=== PATIENT | male | born 1950 | race Caucasian/White ===

== ENCOUNTER 2017-11-16 11:48 | Observation (INO) | payer OTHER ==
[2017-11-16 12:39] LABS: PLATELET COUNT 102 10^3/uL (150-400)
[2017-11-16 13:35] LABS: INR 1.19 (0.83-1.16); PROTIME(PATIENT) 15.3 SEC (12.0-15.0)
[2017-11-16] MEDS ORDERED: OCTREOTIDE ACETATE 50 MCG/ML INJ IVP ONE (14:04)
[2017-11-16] MEDS ORDERED: PANTOPRAZOLE SODIUM 80 MG in NS 100 ML IV ONE (14:08)
--- NOTE | 2017-11-16 14:10 | EDPHY ---
H & P Stated Complaint: dark stools, malaise - Personal History Current Tetanus/Diphtheria Vaccine: Unsure Current Tetanus Diphtheria and Acellular Pertussis (TDAP): Unsure - Medical/Surgical History Hx Asthma: No Hx Chronic Respiratory Disease: Yes Hx Diabetes: No Hx Cardiac Disease: No Hx Renal Disease: No Hx Cirrhosis: Yes Hx Alcoholism: No Hx HIV/AIDS: No Hx Splenectomy or Spleen Trauma: No Other PMH: hepatitis C resolved, portal htn,. mild copd. appy. tonsillectomy - Social History Smoking Status: Former smoker Constitutional: Initial Vital Signs Temperature (C) 36.7 C 11/16/17 12:04 Heart Rate 87 11/16/17 12:04 Respiratory Rate 20 11/16/17 12:04 Blood Pressure 130/79 H 11/16/17 12:04 O2 Sat (%) 90 L 11/16/17 12:04 O2 Delivery Mode Room Air Allergies/Adverse Reactions: Interferons Allergy (Mild, Verified 06/02/15 08:41) Rash Home Medications: Medication Instructions Recorded Cholecalciferol Vit D3 [Vitamin D3 500 units PO DAILY 11/16/17 (*)] Multivitamins [Multivitamin (*)] 1 each PO DAILY 11/16/17 Esomeprazole Magnesium [Nexium] 20 mg PO BID #60 capsule. 11/18/17 Medical Decision Making ED Course/Re-evaluation: Patient's chart indicates that he is allergic to pantoprazole. He tells me that he has no recollection of being allergic to this medication. He takes Nexium without difficulty. I am ordering pantoprazole IV along with octreotide. - Data Points Laboratory Results: Laboratory Results 11/16/17 12:30 11/16/17 12:30 Medications Given: Discontinued Medications Acetaminophen (Tylenol) 650 mg PO Q4HRS PRN PRN Reason: Pain, Mild/Fever, Can Take PO Stop: 05/15/18 14:51 Last Admin: 11/17/17 21:34 Dose: 650 mg Hydrocodone Bitart/Acetaminophen (Gaylord 5/325) 1 - 2 tab PO Q4HRS PRN PRN Reason: Pain, Moderate Able to Take PO Stop: 11/26/17 14:51 Last Admin: 11/17/17 14:42 Dose: 2 tab Fentanyl (Sublimaze) 25 mcg IVP ONCE ONE Stop: 11/17/17 12:32 Last Admin: 11/17/17 14:14 Dose: Not Given Fentanyl (Sublimaze) 25 - 100 mcg IVP Q5M PRN PRN Reason: PACU, IMMEDIATE Pain control Stop: 11/17/17 13:32 Last Admin: 11/17/17 12:51 Dose: 50 mcg Pantoprazole Sodium 80 mg/ (Sodium Chloride) 100 mls @ 200 mls/hr IV ONCE ONE Stop: 11/16/17 14:37 Last Admin: 11/16/17 14:16 Dose: 100 mls Sodium Chloride (Ns) 1,000 mls @ 150 mls/hr IV CONT KELSIE Stop: 05/15/18 14:59 Last Admin: 11/17/17 00:12 Dose: 1,000 mls Octreotide Acetate 500 mcg/ (Sodium Chloride) 51 mls @ 5 mls/hr IV CONT KELSIE Stop: 05/15/18 14:59 Last Admin: 11/18/17 09:26 Dose: 51 mls Pantoprazole Sodium 80 mg/ (Sodium Chloride) 100 mls @ 200 mls/hr IV BID KELSIE Stop: 05/15/18 20:59 Last Admin: 11/18/17 08:03 Dose: 100 mls Multivitamins (Tab-A-Radha) 1 each PO DAILY KELSIE Stop: 05/16/18 08:59 Last Admin: 11/18/17 08:03 Dose: 1 each Octreotide Acetate (Octreotide Acetate) 50 mcg IVP ONCE ONE Stop: 11/16/17 14:05 Last Admin: 11/16/17 15:21 Dose: 50 mcg Pantoprazole Sodium (Protonix) 40 mg PO DAILY KELSIE Stop: 05/17/18 08:59 Last Admin: 11/18/17 09:03 Dose: Not Given Zolpidem Tartrate (Ambien) 5 - 10 mg PO HS PRN PRN Reason: Sleep/Insomnia, use 1st Stop: 05/15/18 14:51 Last Admin: 11/17/17 21:35 Dose: 5 mg Departure - Departure Disposition: [facility] Acute Condition: Good
[2017-11-16] MEDS ORDERED: LORazepam 0.5 MG TAB PO PRN (14:52)
[2017-11-16] MEDS ORDERED: ALBUTEROL 3 ML DEYVIAL IH PRN (14:52)
[2017-11-16] MEDS ORDERED: ONDANSETRON DISINTEGRATING 4 MG TAB PO PRN (14:52)
[2017-11-16] MEDS ORDERED: ONDANSETRON 4 MG/2 ML VIAL IVP PRN (14:52)
[2017-11-16] MEDS ORDERED: ACETAMINOPHEN 325 MG TAB PO PRN (14:52)
[2017-11-16] MEDS ORDERED: LORazepam 2 MG/ML INJ IVP PRN (14:52)
[2017-11-16] MEDS ORDERED: HYDROCODONE/APAP 5/325 TAB PO PRN (14:52)
--- NOTE | 2017-11-16 15:24 | GHP ---
[f rep st] HISTORY AND PHYSICAL DATE OF ADMISSION: 11/16/2017 HISTORY OF PRESENT ILLNESS: This is a 66-year-old male who presents with a 1-2 day history of black and tarry stools. Today, he has had 2 black stools, somewhat tarry in nature along with a feeling of nausea without vomiting or hematemesis. He has known grade 3 varices dating to 2012 secondary to he patitis C which was an initial treatment failure with PEG interferon but has since been treated and i s now resolved. His most recent viral loads have been undetected. Notes are that he has had an unde tected viral load since 2013. In the past 7 days, he has had 1-2 drinks of wine. He denies the use of NSAIDs, Aleve, ibuprofen, or aspirin. The tarry stools have occurred without abdominal pain but h ave occurred with nausea but without vomiting. He denies having fever, chills, sweats, or chest pain . He also denies dizziness or weakness when standing and has not noted a change in the color of his urine. PAST MEDICAL HISTORY: 1. Known hepatitis C. As noted in the HPI, was initially treated with PEG interferon but failed, singh s since been treated a second time, and has improved with a negative viral load since 2013. 2. Cirrhosis with known portal hypertension and grade 3 varices dating to an endoscopy of 2012 when he had the varices banded. Last liver biopsy was in 2012 showing evidence of chronic hepatitis, cirr hosis. It was a grade 3 stage IV biopsy with minimal iron stores noted. 3. COPD with a 30-40 pack-year history of tobacco, though he stopped tobacco in 2009. He does not h ave a regular cough and does not note shortness of breath with walking activities. He uses oxygen at night per a sleep study conducted by Dr. Hugo Stahl. MEDICATIONS: His home medications include vitamin D, Nexium, and a multivitamin. ALLERGIES: Are noted to interferon and it is also noted in the chart that he has pantoprazole listed as an allergy although the patient denies any knowledge of this allergy and denies any known reactio n. He is currently receiving pantoprazole IV slowly in the emergency department without reactions. FAMILY HISTORY: Positive for diabetes in his father, and his father ultimately of coronary donovan ry disease although this may not be of early coronary artery disease history. There is no history of early cancer nor is there any history of bleeding diathesis or clotting disorder. SOCIAL HISTORY: Tobacco: He has a 30-40 pack-year history which he stopped in 2009. Alcohol: He c ontinues to consume alcohol on a near daily basis with drinking wine and never in excess of 2 drinks of wine a day. Drugs are none. His power of patent prosecution attorney has not been established, but his is pres ent and will be making decisions in emergencies. REVIEW OF SYSTEMS: A 10-point review of systems is negative except as noted above. Specifically, he has noted no recent headache or any vision changes. He denies any cough, shortness of breath. Quintin es chest pain, any prior cardiac rhythm disturbance, or any recent discomfort of the chest. He has h ad no abdominal pain yet he has had some nausea. His bowels otherwise function normally. He has kno wn enlarged prostate mildly, but it is not under treatment and denies having hesitancy or frequency. Denies joint, skin problems. There is no psychiatric history. PHYSICAL EXAMINATION: GENERAL: Well-developed, alert, calm gentleman. VITAL SIGNS: Currently norm al. O2 saturation is normal, and he is afebrile. HEENT: TMs are lee bilaterally. The throat is n ot injected. Tongue and buccal mucosa appear normal. There is no jaundice. NECK: Supple without m eningismus. There is no adenopathy in the cervical or axillary region. PULMONARY: Lungs are clear to P and A without wheezing or rales. Breath sounds may be slightly reduced. HEART: Regular rate a nd rhythm. Normal S1, physiologically split S2. No murmur or gallop. ABDOMEN: Normoactive bowel s ounds. There is a sense of fullness in the epigastrium and the right upper quadrant but no sense of tenderness or pain. Has no palpable mass. Spleen is not palpable. There is no rebound. : Genit jatin show a normal male. SKIN: Warm and dry. EXTREMITIES: Warm and dry. VASCULAR: Pulses 2+ at the dorsalis pedis, posterior tibial, femorals, and carotids. No bruits appreciated. NEUROLOGIC: A ppears symmetric and normal grossly. LABORATORY: WBC 8000, hemoglobin is 11.66, down from 13.8 previously. INR is slightly high at 1.19. His chemistry panel is normal except for a slightly elevated BUN at 39. Renal function appears nor mal. ASSESSMENT: 1. Acute gastrointestinal bleed, probably upper gastrointestinal bleed secondary to bleeding varices . His last endoscopy of record here in 2012 did not show any evidence of peptic ulcer disease in the duodenum or the stomach although significant gastropathy was noted secondary to portal hypertension; thus, it is certainly possible with his increased consumption of alcohol that he may be bleeding fro m varices. He is currently not orthostatic although his BUN is slightly elevated. This is likely se condary to the GI bleeding and not the volume contraction. He is currently n.p.o. and hungry, and an endoscopy is planned in the near future. In the emergency department, he has received octreotide an d pantoprazole. GI consultation has been obtained, and he will be seen by Dr. Angleo Barr later tung herman. 2. Chronic obstructive pulmonary disease with the use of oxygen at night secondary to the findings o f a sleep study conducted by Dr. Hugo Stahl. He currently has normal oxygenation, no respiratory d istress, and disclaims any recent history of respiratory problems. The chest x-ray has not been perf ormed. Given the normal exam and the negative history and findings, it does not seem to be necessary . 3. Prior history of chest pain post an endoscopy in 2013. He disclaims any evidence of chest pain, orthopnea, or PND, and currently, his rhythm is stable. No further evaluation appears necessary. 4. Deep venous thrombosis prophylaxis will be with sequential compression devices and ambulation due to the gastrointestinal bleeding. 5. Code status is full. With his POA, we will presume to be his . TIME: This admission required 50 minutes. /[id number]/MODL
[2017-11-16] MEDS: NS 1,000 ML IV SCH (18:34)
[2017-11-16] MEDS: PANTOPRAZOLE SODIUM 80 MG in NS 100 ML IV SCH (20:39)
[2017-11-16] MEDS: ZOLPIDEM TARTRATE 5 MG TAB PO PRN (22:43)
[2017-11-17] MEDS: NS 1,000 ML IV SCH (00:12)
[2017-11-17] MEDS: OCTREOTIDE ACETATE 500 MCG in NS 50 ML IV SCH ×2 (02:56→21:35)
--- NOTE | 2017-11-17 03:41 | GCON ---
[f rep st] CONSULTATION DATE OF CONSULTATION: 11/16/2017 REFERRING PHYSICIAN: Rosalino Jones Jr., MD REASON FOR CONSULTATION: Dr. Jones thank you very kindly for asking me to evaluate the patient in consultation today for a chief complaint of melena. HISTORY OF PRESENT ILLNESS: He is a 66-year-old gentleman with known cirrhosis, who has had problems with previous variceal bleeding back in 2012 secondary to both hepatitis C and possibly a component of fatty liver, who was admitted with 3 days of melena. His hematocrit was noted to be even lower th an baseline at 36.8. His INR is 1.19. His BUN is elevated at 39. He has had no hematemesis. He de nies any chest pain or difficulty with dysphagia. Does not report any hematochezia, maroon stool or hematemesis. He has been taking Nexium intermittently for reflux. He has not had an upper endoscopy in about 2 years after surveillance endoscopy ablated his varices completely. He is admitted for fu rther evaluation and management. PAST MEDICAL HISTORY: Hepatitis C, cirrhosis, esophageal varices with history of bleeding, COPD from tobacco use. MEDICATIONS: Include Nexium, multivitamin, vitamin D. ALLERGIES: Interferon. FAMILY HISTORY: Significant for diabetes in his father. No history of hepatitis or liver cancer. SOCIAL HISTORY: For tobacco 40 pack year. Alcohol on a daily basis. No other substance abuse. REVIEW OF SYSTEMS: CONSTITUTIONAL: Some mild malaise. No fever, chills, night sweats, anorexia, or weight loss. HEENT: Denies headache, epistaxis, visual disturbances, dizziness, rhinorrhea, sore t hroat, or difficulty swallowing. PULMONARY: No shortness of breath or cough. CARDIOVASCULAR: No c hest pains, palpitations, or syncope. GI: Per the HPI. No lower extremity edema. Otherwise negati ve. RHEUMATOLOGIC: No joint pain or swelling. GENITOURINARY: No flank pain, hematuria, or dysuria. HEMATOLOGIC: No epistaxis or bruising. LYMPH : Denies any adenopathy or glandular swelling. PSYCHIATRIC: No depression, anxiety, or insomnia. PHYSICAL EXAMINATION: VITAL SIGNS: Blood pressure 112/64, heart rate is 85, respirations are 15, ox ygenation is 90% on room air, temperature is 36.9. GENERAL: Comfortable male in no acute distress. HEENT: Normocephalic, atraumatic. Sclerae anicteric. Neck supple. Nares are without blood. PULM ONARY: Clear to auscultation bilaterally. CARDIOVASCULAR: Regular rate and rhythm without murmur, rub, or gallop. GI: Abdomen is soft and without organomegaly. No ascites. No tenderness, rebound, or guarding. EXTREMITIES: There is palmar erythema. DERMATOLOGIC: No jaundice, but there are spi pola angiomata over the chest. NEUROLOGIC: Alert to person, place, and time. No asterixis. Nonfoca l motor exam. LYMPH: No adenopathy to the anterior cervical, supraclavicular, axillary, or groin ar ea. LABORATORY DATA: Database includes the following; white blood count is 8.9; hematocrit 36.8; platele ts are 102; MCV is 79.5. INR is 1.1 with a PT of 15.3. Sodium 144, potassium 4.6, chloride 112, bic arbonate 18, BUN 39, creatinine 0.8, glucose 90. Total bilirubin 0.98, AST 22, ALT 25, alkaline phosphatase 83, total protein 6.5, albumin 4.0. IMPRESSION: 1. Anemia secondary to acute blood loss. 2. Melena. 3. Cirrhosis due to hepatitis C and alcohol. 4. History of esophageal varices with previous bleeding. 5. Thrombocytopenia. PLAN: 1. Octreotide bolus and drip. 2. Protonix 40 mg b.i.d. IV should be fine. 3. Type and hold 2 units of blood. 4. Monitor hematocrit q.4 hours. 5. I believe he can have a full liquid diet tonight with n.p.o. after midnight for planned endoscopy with likely varicocele band ligation. 6. If there is more urgent bleeding, we will perform endoscopy on a more urgent basis. 7. Further recommendations to follow his endoscopic evaluation tomorrow. /[id number]/MODL
[2017-11-17 04:50] LABS: INR 1.23 (0.83-1.16); PROTIME(PATIENT) 15.7 SEC (12.0-15.0)
[2017-11-17] MEDS: PANTOPRAZOLE SODIUM 80 MG in NS 100 ML IV SCH ×2 (08:30→20:43)
[2017-11-17] MEDS: MULTIVITAMINS 1 EACH TAB PO SCH (08:30)
[2017-11-17 10:07] LABS: PLATELET COUNT 69 10^3/uL (150-400)
--- NOTE | 2017-11-17 11:01 | HOSPPROG ---
Hospitalist Progress Note Assessment/Plan: New patient encounter 66 yo male admitted with melena, likely UGIB, and acute blood loss anemia #Acute blood loss anemia -has not received transfusion -repeat H/H in the 9's, no tachycardia #melena and likely UGIB in a pt with hx of esophogeal varices with bleed -Will have endoscopy per Dr. Laughlin today -Cont PPI IV and Octreotide #Thrombocytopenia, monitor #Cirrhosis due to hx of Hep C and ETOH #COPD and nocturnal hypoxemia, currently at baseline Plan: -Await endoscopy results -cont current mgmt -Transfuse PRN -SCD's -Full Code Subjective: NPO. Awaiting endoscopy today. Still with melena. Objective: Vital Signs Temp Pulse Resp BP Pulse Ox 36.8 C 81 18 106/62 89 L 11/17/17 08:58 11/17/17 08:58 11/17/17 08:58 11/17/17 08:58 11/17/17 08:58 Laboratory Results 11/17/17 09:55 11/17/17 04:23 11/16/17 11/17/17 11/18/17 05:59 05:59 05:59 Intake Total 100 Balance 100 PT 15.7 SEC (12.0-15.0) H 11/17/17 04:23 INR 1.23 (0.83-1.16) H 11/17/17 04:23 - Physical Exam Constitutional: no apparent distress Eyes: PERRL, EOMI Ears, Nose, Mouth, Throat: moist mucous membranes, hearing normal Cardiovascular: regular rate and rhythym, No edema Respiratory: no respiratory distress, no rales or rhonchi, reduced air movement Gastrointestinal: normoactive bowel sounds, soft, non-tender abdomen Genitourinary: no bladder fullness Skin: warm Musculoskeletal: full muscle strength Neurologic: AAOx3 Psychiatric: interacting appropriately, not anxious, not encephalopathic, thought process linear Lymph, Heme, Immunologic: No petechiae ICD10 Worksheet Patient Problems: Problems Problem Status Onset Gastrointestinal bleeding Acute
[2017-11-17] MEDS ORDERED: PROPOFOL 200 MG/20 ML VIAL ONE ×2 (11:54→12:22)
--- NOTE | 2017-11-17 11:54 | PDANEPAE ---
ANE History of Present Illness 66 year old male for EGD ANE Past Medical History - Pulmonary History Hx Oxygen in Use at Home: Yes O2 in Use at Home (L/minute): 2L Hx Sleep Apnea: Yes - Endocrine History Hx Diabetes: No ANE Review of Systems Review of Systems: ANE Patient History - Allergies Allergies/Adverse Reactions: Interferons Allergy (Mild, Verified 06/02/15 08:41) Rash - Home Medications Home Medications: Cholecalciferol Vit D3 [Vitamin D3 (*)] 500 units PO DAILY 11/16/17 [Last Taken Unknown] Esomeprazole Magnesium [Nexium] 20 mg PO DAILY PRN 11/16/17 [Last Taken Unknown] Multivitamins [Multivitamin (*)] 1 each PO DAILY 11/16/17 [Last Taken Unknown] - Smoking Hx Smoking Status: Former smoker ANE Labs/Vital Signs - Labs Result Diagrams: 11/17/17 09:55 11/17/17 04:23 - Vital Signs Blood Pressure: 106/62 Heart Rate: 81 Respiratory Rate: 18 O2 Sat (%): 89 Height: 170.18 cm Weight: 79.469 kg ANE Physical Exam - Airway Mallampati Score: Class 1 ANE Anesthesia Plan Anesthesia Plan: MAC
--- NOTE | 2017-11-17 11:55 | POSTANESTH ---
Post Anesthetic Evaluation Respiratory Status: Normal, Stable Level of Consciousness/Mental Status: Can Participate in Eval Pain Control: Adequate, Prn Tx Ordered Nausea/Vomiting Control: Adequate, Prn Tx Ordered Complications Possibly Related to Anesthesia: None Noted
[2017-11-17] MEDS ORDERED: NALOXONE HCL 0.4 MG/ML INJ IVP PRN ×2 (11:56→12:32)
[2017-11-17] MEDS ORDERED: fentaNYL 100 MCG/2 ML INJ IVP ONE (12:31)
[2017-11-17] MEDS ORDERED: fentaNYL 100 MCG/2 ML INJ IVP PRN (12:32)
--- NOTE | 2017-11-17 12:34 | GIREPORT ---
Formerly [facility], [facility] Surgical Services - Endoscopy Department Patient Name: Scott Miramontes Procedure Date: 11/17/2017 11:50 AM Patient Type: Inpatient Attending MD/ ER Physician: Angelo Barr MD Procedure: Upper GI endoscopy Indications: Melena Providers: Angelo Barr MD Medicines: Propofol per Anesthesia Complications: No immediate complications. Description of Procedure: After obtaining informed consent, the endoscope was passed under direct vision. Throughout the procedure, the patient's blood pressure, pulse, and oxygen saturations were monitored continuously. The Endoscope was intro duced through the mouth, and advanced to the second part of duodenum. The [facility] er GI endoscopy was accomplished without difficulty. The patient tolerated th e procedure well. Findings: Grade II varices were found in the middle third of the esophagus and in the lower third of the esophagus. They were 8 mm in largest diameter. Four bands were successfully placed with complete eradication, resulting in deflat ion of varices. There was no bleeding at the end of the maneuver. Moderate portal hypertensive gastropathy was found in the entire examin ed stomach. The examined duodenum was normal. Estimated Blood Loss: Estimated blood loss: none. Post Op Diagnosis: - Grade II esophageal varices. Completely eradicated. Banded. - Portal hypertensive gastropathy. - No gastric varices. - Normal examined duodenum. - No specimens collected. Recommendation: - Soft diet. - Continue octreotide infusion of 50 micrograms per hour for 2 addition al days. - Use Protonix (pantoprazole) 40 mg PO daily. - Repeat upper endoscopy in 4 weeks for retreatment. - No aspirin, ibuprofen, naproxen, or other non-steroidal anti-inflamma tory drugs. - Check hematocrit q 8 hours until stable. - [facility]. - Thank you for allowing me to be involved in the care of your patient. Attending Participation: I personally performed the entire procedure without the assistance of a fellow, resident or surg ical stores assistant. Angelo Barr MD Angelo Barr MD 11/17/2017 12:33:55 PM This report has been signed electronicallyDavid MD Momo Number of Addenda: 0 Note Initiated On: 11/17/2017 11:50 AM [email or web address]
[2017-11-17] MEDS ORDERED: fentaNYL 100 MCG/2 ML INJ ONE (12:48)
[2017-11-17] MEDS: ZOLPIDEM TARTRATE 5 MG TAB PO PRN (21:35)
[2017-11-18 03:52] VITALS: O2SAT 90
[2017-11-18 04:59] LABS: PLATELET COUNT 52 10^3/uL (150-400)
[2017-11-18] MEDS: MULTIVITAMINS 1 EACH TAB PO SCH (08:03)
[2017-11-18] MEDS: PANTOPRAZOLE SODIUM 80 MG in NS 100 ML IV SCH (08:03)
[2017-11-18] MEDS ORDERED: PANTOPRAZOLE SODIUM 40 MG TAB PO SCH (09:00)
[2017-11-18] MEDS: OCTREOTIDE ACETATE 500 MCG in NS 50 ML IV SCH (09:26)
[2017-11-18 12:07] VITALS: BP 125/78; PULSE 70; RESP 18; TEMP 97.7
--- NOTE | 2017-11-18 12:11 | PDDCSUM ---
Discharge Summary Discharge Summary: 66 yo male admitted with melena and acute blood loss anemia. He has a hx of variceal bleed. He had endoscopy performed by Dr. Laughlin who found Grade II esophogeal varices and four bands were placed. There was also e/o of portal HTN Gastropathy. No e/o of gastric varices. Normal duodenum. No specimens were collected. He was kept overnight after the endoscopy and diet was advanced. Octreotide was infused and stopped on the day of discharge after discussion with GI. Nexium has been increased to BID dosing. No further Melena reported by patient He will f/u with GI and have a repeat endoscopy in 4 weeks. He did not require PRBC transfusion DDX: #Acute blood loss anemia -has not received transfusion #melena and Grad II esophogeal varices, (four bands placed), portal HTN Gastropathy #Thrombocytopenia, monitor #Cirrhosis due to hx of Hep C and ETOH #COPD and nocturnal hypoxemia, currently at baseline Exam: NAD AAOX3 RRR CTA B S/NT/ND NO LE EDEMA Meds: see med rec follow up: per above
--- NOTE | 2017-11-18 12:18 | ASMTCMCOM ---
CM Note CM Note Notes: Pt to DC today with no needs. He will f/u with GI as outpt. Date Signed: 11/18/2017 12:18 PM Electronically Signed By:Brittany Harding LCSW
--- NOTE | 2017-11-18 13:54 | ASDISCHSUM ---
Discharge Information Plan Status: Medically Cleared to Leave: Discharge Date:11/18/2017 12:35 PM CM D/C Disposition: ADT D/C Disposition:Home, Routine, Self-Care Projected Discharge Date:11/18/2017 12:35 PM Transportation at D/C: Discharge Delay Reason: Follow-Up Date:11/18/2017 12:35 PM Discharge Slot: Final Diagnosis: Placement Information Patient Contact Information Contact Name:ALIRIO Relationship: Address:[address] [place] [address] City:[place] Alternate Phone: State/Zip Code:[place] [address] Email: Financial Information Financial Class:HMO and PPO Plans Primary Plan Desc:[facility] Primary Plan Number:[id number] Secondary Plan Desc: Secondary Plan Number: Assessment Information [facility] CM Progress Note CM Note CM Note Notes: Pt to DC today with no needs. He will f/u with GI as outpt. Date Signed: 11/18/2017 12:18 PM Electronically Signed By:Brittany Harding LCSW Intervention Information
== END 2017-11-18 12:35 | disposition home or self-care (01) ==
LOC: F1N 15:46
PROVIDERS: ADMIT Internal Medicine Pulmonary Disease; ATTEND Internal Medicine Pulmonary Disease
PROC: 0W3P8ZZ Control Bleeding in Gastrointestinal Tract, Via Natural or Artificial Opening Endoscopic (ICD-10-PCS; principal; 2017-11-16)
DX: I85.01 Esophageal varices with bleeding (principal); I85.11 Secondary esophageal varices with bleeding; K31.89 Other diseases of stomach and duodenum; K70.30 Alcoholic cirrhosis of liver without ascites; F10.20 Alcohol dependence, uncomplicated; J44.9 Chronic obstructive pulmonary disease, unspecified; Z87.891 Personal history of nicotine dependence; B18.2 Chronic viral hepatitis C
CPT/HCPCS: 43205; G0378; J2353; J2354; J2704; J3010

== ENCOUNTER → 2018-02-15 | Outpatient (CLI) | payer OTHER ==
[~2018-02-15] MED LIST: IOPAMIDOL (ISOVUE 370) 100 ML BTL IV ONE
== END ==
LOC: CIMAGING 14:13
PROVIDERS: ATTEND Internal Medicine Pulmonary Disease
DX: I25.84 Coronary atherosclerosis due to calcified coronary lesion (principal); J84.9 Interstitial pulmonary disease, unspecified; J43.2 Centrilobular emphysema; Z87.891 Personal history of nicotine dependence
CPT/HCPCS: 71250-PO; 71275-PO; Q9967

== ENCOUNTER 2018-05-17 08:11 | Day surgery (SDC) | payer OTHER ==
[2018-05-17] MEDS ORDERED: LR 1,000 ML IV ONE (08:39)
[2018-05-17] MEDS ORDERED: LIDOCAINE 1% 2 ML INJ ID PRN (08:39)
--- NOTE | 2018-05-17 09:07 | CPEKG ---
Heart Rate: 66 RR Interval: 909 P-R Interval: 156 QRSD Interval: 100 QT Interval: 432 QTC Interval: 453 P [place]: 53 QRS [place]: 115 T Wave [place]: 6 EKG Severity - ABNORMAL ECG - EKG Impression: SINUS RHYTHM EKG Impression: RIGHT AXIS DEVIATION EKG Impression: ABNORMAL T, CONSIDER ISCHEMIA, ANTERIOR LEADS Electronically Signed By: Rom Flores 18-May-2018 08:33:48
--- NOTE | 2018-05-17 09:38 | PDANEPAE ---
ANE History of Present Illness 67 year old male for EGD and colonoscopy. ANE Past Medical History - Cardiovascular History Hx Hypertension: No Hx Arrhythmias: No Hx Chest Pain: No Hx Coronary Artery / Peripheral Vascular Disease: No Hx CHF / Valvular Disease: No Hx Palpitations: No - Pulmonary History Hx COPD: Yes Hx Oxygen in Use at Home: Yes O2 in Use at Home (L/minute): 2.L Hx Sleep Apnea: Yes Sleep Apnea Screening Result - Last Documented: Positive - Neurologic History Hx Cerebrovascular Accident: No Hx Seizures: No Hx Dementia: No - Endocrine History Hx Diabetes: No - Renal History Hx Renal Disorders: No - Liver History Hx Hepatic Disorders: Yes Hepatic History Comment: CIRRHOSIS - Neurological & Psychiatric Hx Hx Neurological and Psychiatric Disorders: No - Cancer History Hx Cancer: No - Congenital Disorder History Hx Congenital Disorders: No - GI History Hx Gastrointestinal Disorders: Yes Gastrointestinal History Comment: bleeding esophageal varices - Other Health History Other Health History: thrombocytopenia severe. anemia - Chronic Pain History Chronic Pain: No - Surgical History Prior Surgeries: endoscopic ANE Review of Systems Review of systems is: negative Review of Systems: - Exercise capacity Exercise capacity: <4 METS METS (RN): 3 METS ANE Patient History - Allergies Allergies/Adverse Reactions: Interferons Allergy (Mild, Verified 05/17/18 09:12) Other-Enter Comments - Home Medications Home medications: home medication list seen and reviewed Home Medications: Cholecalciferol Vit D3 [Vitamin D3 (*)] 11/16/17 [Last Taken 05/12/18] Multivitamins [Multivitamin (*)] 11/16/17 [Last Taken 05/15/18] Anoro Ellipta 62.5-25 Mcg INH 05/12/18 [Last Taken 05/17/18 07:30] Esomeprazole Magnesium [Nexium] 05/12/18 [Last Taken 05/15/18] Flovent Hfa 05/12/18 [Last Taken 05/15/18] Ventolin Hfa 05/12/18 [Last Taken 05/15/18] - NPO status NPO Status: no food or drink >8 hours NPO Since - Liquids (Date): 05/17/18 NPO Since - Liquids (Time): 07:30 NPO Since - Solids (Date): 05/16/18 NPO Since - Solids (Time): 12:00 - Anes Hx Anes Hx: no prior problems - Smoking Hx Smoking Status: Former smoker - Alcohol Use Alcohol Use: None - Family Anes Hx Family Anes Hx: neg - N/A Family Hx Anesthesia Complications: none ANE Labs/Vital Signs - Labs Result Diagrams: 05/17/18 08:55 - Vital Signs Vital Signs: reviewed preoperatively; see RN documention for details Blood Pressure: 112/71 Heart Rate: 71 Respiratory Rate: 16 O2 Sat (%): 87 Height: 172.72 cm Weight: 74.843 kg ANE Physical Exam - Airway Neck exam: FROM Mallampati Score: Class 2 - Pulmonary Pulmonary: reduced air movement - Cardiovascular Cardiovascular: regular rate and rhythym - ASA Status ASA Status: IV (Cirrhosis with bleeding varices. Anemia and thrombocytopenia.) ANE Anesthesia Plan Anesthesia Plan: GA with mask Total IV Anesthesia: Yes
[2018-05-17 09:42] LABS: PLATELET COUNT 68 10^3/uL (150-400)
--- NOTE | 2018-05-17 09:52 | PDGENHP ---
History & Physical Chief Complaint: Esophageal varices. Personal history of colonic adenoma History of Present Illness: EGD for surveillance of esophageal varices. Colonoscopy for surveillance of colonic adenoma Pertinent Past, Social, Family History: Cirrhosis from Hep C (cured currently). Esophageal varices with history of UGI bleed and prior banding. COPD. HTN Relevant Physical Exam: NAD. CTA B/L. RRR without m/r/g. GI soft. NT/ND. No ascites. No HSM. Cardiorespiratory Assessment: EGD. Colonoscopy. ASA III. MAC
[2018-05-17] MEDS ORDERED: PROPOFOL/EMULSION 500 MG/50 ML BOTTLE IV ONE (10:05)
[2018-05-17] MEDS ORDERED: NALOXONE HCL 0.4 MG/ML INJ IVP PRN (10:18)
[2018-05-17] MEDS ORDERED: ONDANSETRON 4 MG/2 ML VIAL IVP PRN (10:18)
[2018-05-17] MEDS ORDERED: LR 500 ML IV PRN (10:18)
[2018-05-17] MEDS ORDERED: fentaNYL 100 MCG/2 ML INJ IVP PRN (10:18)
[2018-05-17] MEDS ORDERED: PHENYLEPHRINE HCL 100 MCG/ML SYR IVP PRN (10:18)
--- NOTE | 2018-05-17 10:20 | GIREPORT ---
[facility] Surgical Services - Endoscopy Department Patient Name: Scott Miramontes Procedure Date: 05/17/2018 9:55 AM Patient Type: Outpatient Attending MD/ ER Physician: Angelo Barr MD Procedure: Upper GI endoscopy Indications: Cirrhosis with suspected esophageal varices Providers: Angelo Barr MD Medicines: Propofol per Anesthesia Complications: No immediate complications. Description of Procedure: After obtaining informed consent, the endoscope was passed under direct vision. Throughout the procedure, the patient's blood pressure, pulse, and oxygen saturations were monitored continuously. The Endoscope was intro duced through the mouth, and advanced to the second part of duodenum. The [facility] er GI endoscopy was accomplished without difficulty. The patient tolerated th e procedure well. Findings: Three columns of non-bleeding grade I varices were found in the lower t hird of the esophagus, 35 cm from the incisors. No stigmata of recent bleedi ng were evident and no red sami signs were present. Scarring from prior treatment was visible. The varices appeared smaller than they were at p rior exam. Moderate portal hypertensive gastropathy was found in the entire examin ed stomach. The examined duodenum was normal. Estimated Blood Loss: Estimated blood loss: none. Post Op Diagnosis: - Non-bleeding grade I esophageal varices. Completely eradicated from p rior banding. - Portal hypertensive gastropathy. - Normal examined duodenum. - No specimens collected. Recommendation: - Repeat upper endoscopy in 1 year for surveillance. - Resume previous diet. - No aspirin, ibuprofen, naproxen, or other non-steroidal anti-inflamma tory drugs. - Use a proton pump inhibitor PO daily. - Perform a colonoscopy today. - Thank you for allowing me to be involved in the care of your patient. Attending Participation: I personally performed the entire procedure without the assistance of a fellow, resident or surg ical statistical assistant. Angelo Barr MD Angelo Barr MD 05/17/2018 10:20:04 AM This report has been signed electronicallyDavid MD Momo Number of Addenda: 0 Note Initiated On: 05/17/2018 9:55 AM [email or web address]
--- NOTE | 2018-05-17 10:40 | GIREPORT ---
[facility] Surgical Services - Endoscopy Department Patient Name: Scott Miramontes Procedure Date: 05/17/2018 9:53 AM Patient Type: Outpatient Attending / ER Physician: Angelo Barr MD Procedure: Colonoscopy Indications: High risk colon cancer surveillance: Personal history of colonic polyps Providers: Angelo Barr MD Medicines: Propofol per Anesthesia Complications: No immediate complications. Description of Procedure: After obtaining informed consent, the scope was passed under direct vis ion. Throughout the procedure, the patient's blood pressure, pulse, and oxyg en saturations were monitored continuously. The Colonoscope was introduced through the anus and advanced to the cecum, identified by appendiceal orifice and ileocecal valve. The colonoscopy was performed without difficulty. The patient tolerated the procedure well. The quality of th e bowel preparation was good. The ileocecal valve, appendiceal orifice, a nd rectum were photographed. Findings: The digital rectal exam findings include non-thrombosed external hemorrhoids. Pertinent negatives include normal sphincter tone and no palpable rectal lesions. A 5 mm polyp was found in the transverse colon. The polyp was sessile. The polyp was removed with a cold biopsy forceps. Resection and retrieval w ere complete. A 5 mm polyp was found in the descending colon. The polyp was sessile. The polyp was removed with a cold biopsy forceps. Resection and retrieval w ere complete. Non-bleeding rectal varices were found. Estimated Blood Loss: Estimated blood loss: none. Estimated blood loss was minimal. Post Op Diagnosis: - Non-thrombosed external hemorrhoids found on digital rectal exam. - One 5 mm polyp in the transverse colon, removed with a cold biopsy forceps. Resected and retrieved. - One 5 mm polyp in the descending colon, removed with a cold biopsy forceps. Resected and retrieved. - Rectal varices. Recommendation: - Await pathology results. - Repeat colonoscopy in 5 years for surveillance. - Resume previous diet. - Continue present medications. - Patient has a contact number available for emergencies. The signs and symptoms of potential delayed complications were discussed with the pat ient. Return to normal activities tomorrow. Written discharge instructions we re provided to the patient. - Thank you for allowing me to be involved in the care of your patient. Attending Participation: I personally performed the entire procedure without the assistance of a fellow, resident or surg ical drafter assistant. Angelo Barr MD Angelo Barr MD 05/17/2018 10:39:45 AM This report has been signed electronicallyDavid MD Momo Number of Addenda: 0 Note Initiated On: 05/17/2018 9:53 AM Total Procedure Duration Time 0 hours 13 minutes 22 seconds [email or web address]
[2018-05-17 11:54] VITALS: BP 135/75
--- NOTE | 2018-05-17 18:50 | POSTANESTH ---
Post Anesthetic Evaluation Cardiovascular Status: Normal, Stable, Similar to Pre-Op Cond Respiratory Status: Normal, Stable, Similar to Pre-op Cond. Level of Consciousness/Mental Status: Can Participate in Eval, Alert and Oriented Pain Control: Adequate, Prn Tx Ordered Nausea/Vomiting Control: Adequate, Prn Tx Ordered Complications Possibly Related to Anesthesia: None Noted
== END 2018-05-17 11:55 | disposition home or self-care (01) ==
LOC: FSGY 08:11
PROVIDERS: ATTEND Internal Medicine Gastroenterology
PROC: 0DBM8ZX Excision of Descending Colon, Via Natural or Artificial Opening Endoscopic, Diagnostic (ICD-10-PCS; principal; 2018-05-17 09:45)
PROC: 0DBL8ZX Excision of Transverse Colon, Via Natural or Artificial Opening Endoscopic, Diagnostic (ICD-10-PCS; principal; 2018-05-17 09:45)
PROC: 0DJ08ZZ Inspection of Upper Intestinal Tract, Via Natural or Artificial Opening Endoscopic (ICD-10-PCS; 2018-05-17 09:45)
DX: D12.4 Benign neoplasm of descending colon (principal); D12.3 Benign neoplasm of transverse colon; I85.00 Esophageal varices without bleeding; K74.60 Unspecified cirrhosis of liver; K31.9 Disease of stomach and duodenum, unspecified
CPT/HCPCS: J2704

== ENCOUNTER → 2018-11-09 | Outpatient (CLI) | payer OTHER | LOC: CIMAGING 08:51 | PROVIDERS: ATTEND Internal Medicine Gastroenterology | DX: R16.0 Hepatomegaly, not elsewhere classified (principal); K80.20 Calculus of gallbladder without cholecystitis without obstruction; K74.69 Other cirrhosis of liver; B19.20 Unspecified viral hepatitis C without hepatic coma | CPT/HCPCS: 76705-PO ==

== ENCOUNTER → 2018-12-27 | Outpatient (CLI) | payer OTHER ==
[~2018-12-27] MED LIST changes: +IOHEXOL 350mgI/ML (OMNIPAQUE) 150 ML BTL IV ONE; -IOPAMIDOL (ISOVUE 370) 100 ML BTL IV ONE
== END ==
LOC: FIMAGING 14:58
PROVIDERS: ATTEND Internal Medicine Gastroenterology
DX: R16.0 Hepatomegaly, not elsewhere classified (principal); R16.1 Splenomegaly, not elsewhere classified; K57.30 Diverticulosis of large intestine without perforation or abscess without bleeding; J84.10 Pulmonary fibrosis, unspecified
CPT/HCPCS: Q9967

== ENCOUNTER → 2019-01-09 | Outpatient (CLI) | payer OTHER | LOC: FIMAGING 15:41 ==